=== PATIENT | female | born 1945 | race Caucasian/White ===

== ENCOUNTER → 2017-09-26 | Outpatient (CLI) | payer MEDICARE, BC ==
[~2017-09-26] MED LIST: CALC-852 PO; GLUC100026 PO; MULT-775 PO; OMEP40CA48 PO; PSYL1PAC23 PO; VITA-197 PO
--- NOTE | 2017-09-26 11:32 | RADIOLOGY IMAGING REPORT ---
FACILITY: [facility] PATIENT NAME: Candy Peña : 1945 MR: [id number] V: [id number] EXAM DATE: ORDERING PHYSICIAN: TIMI CHRISTIAN TECHNOLOGIST: Location: [facility] Patient: Candy Peña : 1945 Visit/Account:[id number] Date of Sevice: 09/26/2017 EXAMINATION: CT Head without intravenous contrast HISTORY: Trauma. TECHNIQUE: Axial images were obtained from the skull base to the vertex without intravenous contrast . Sagittal and coronal reformatted images are also submitted. One of the following dose optimization techniques was utilized in the performance of this exam: Autom ated exposure control; adjustment of the mA and/or kV according to the patient's size; or use of an i terative reconstruction technique. Specific details can be referenced in the facility's radiology C T exam operational policy. COMPARISON: 04/14/2017. FINDINGS: Brain volume: Mild generalized volume loss. Ventricles: Negative. Acute ischemic changes: Stable chronic ischemic changes versus prominent perivascular spaces in the bilateral inferior basal ganglia. Otherwise no evidence of acute large artery territory infarction. Hemorrhage: None. Masses / edema: None. Latif-white: Negative. White matter: Stable mild chronic microvascular ischemic changes. Vessels: Mild carotid siphon calcifications. Otherwise negative. Extra-axial: Negative. Calvarium / skull base: Left parietal skin mariya. No skull fracture. Visualized sinuses / orbits: Negative. IMPRESSION: 1. Left parietal skin mariya. No skull fracture. 2. No acute intracranial abnormality. Report Dictated By: Nitin Park MD at 09/26/2017 11:23 AM Report E-Signed By: Nitin Park MD at 09/26/2017 11:28 AM WSN:[id number]
== END ==
LOC: CT 10:52
PROVIDERS: ATTEND Physician Assistant
DX: S01.80XA Unspecified open wound of other part of head, initial encounter (principal); S09.90XA Unspecified injury of head, initial encounter
CPT/HCPCS: 70450

== ENCOUNTER → 2018-07-23 | Outpatient (CLI) | payer MEDICARE, BC ==
--- NOTE | 2018-07-23 16:51 | RADIOLOGY IMAGING REPORT ---
FACILITY: [facility] [place] PATIENT NAME: CHARISSA AMBROCIO : [id number] MR: [id number] V: [id number] EXAM DATE: ORDERING PHYSICIAN: BRETT ALFARO TECHNOLOGIST: Esperanza Maldonado PROCEDURE:BILATERAL DIGITAL SCREENING MAMMOGRAM WITH CAD ASSISTED INTERPRETATION & 3D TOMOSYNTHESIS COMPARISON:Prior mammograms 04/23/17, 04/19/16, 04/11/15, 03/16/14, 10/07/12. INDICATIONS:screening FINDINGS: There are areas of scattered fibroglandular density throughout the breasts. In the lateral portion of the Right breast on the Right CC view there is a small nodular density for which Spot compression view is recommended. DIAGNOSTIC CATEGORY 0--INCOMPLETE: NEED ADDITIONAL IMAGING EVALUATION. RECOMMENDATIONS: ADDITIONAL MAMMOGRAPHIC VIEWS REQUIRED: RIGHT BREAST. IMPRESSION: BIRADS 0: Incomplete. Additional views of the Right breast recommended as described. Dictated by: Heavenly Huff M.D. on 07/23/2018 at 14:56 Transcribed by: EDUARD on 07/23/2018 at 15:05 Approved by: Heavenly Huff M.D. on 07/23/2018 at 16:50 [facility]
== END ==
LOC: MAMO 01:30
PROVIDERS: ATTEND Internal Medicine
DX: Z12.31 Encounter for screening mammogram for malignant neoplasm of breast (principal); R92.8 Other abnormal and inconclusive findings on diagnostic imaging of breast
CPT/HCPCS: 77063; 77067

== ENCOUNTER → 2018-08-06 | Outpatient (CLI) | payer MEDICARE, BC ==
--- NOTE | 2018-08-07 15:06 | RADIOLOGY IMAGING REPORT ---
FACILITY: [facility] PATIENT NAME: CHARISSA AMBROCIO : [id number] MR: [id number] V: [id number] EXAM DATE: ORDERING PHYSICIAN: RACQUEL GANDARA TECHNOLOGIST: Esperanza Maldonado PROCEDURE:RIGHT DIGITAL DIAGNOSTIC MAMMOGRAM WITH CAD ASSISTED INTERPRETATION & 3D TOMOSYNTHESIS COMPARISON:Prior mammograms dated 07/23/18, 04/23/17, 04/19/16, 04/11/15, 03/16/14, 10/07/12 INDICATIONS:further eval FINDINGS: The patient returns for spot compression view in the Right CC projection with 3D breast tomosynthesis. The small nodular area in the lateral portion of the Right breast in the posterior third appears partially compressible. The appearance is more in keeping with the prior mammograms from 04/23/17. DIAGNOSTIC CATEGORY 2--BENIGN FINDING. RECOMMENDATIONS: ROUTINE MAMMOGRAM AND CLINICAL EVALUATION. IMPRESSION: BIRADS 2: Benign finding. No significant abnormality of the Right breast is seen. Dictated by: Heavenly Huff M.D. on 08/06/2018 at 15:56 Transcribed by: NELL on 08/07/2018 at 14:32 Approved by: Heavenly Huff M.D. on 08/07/2018 at 15:05 [facility]
== END ==
LOC: MAMO 00:32
PROVIDERS: ATTEND Family Medicine
DX: R92.8 Other abnormal and inconclusive findings on diagnostic imaging of breast (principal)
CPT/HCPCS: 77061; 77065